=== PATIENT | male | born 1945 | race Caucasian/White ===

== ENCOUNTER → 2016-05-07 | Outpatient (CLI) | payer MEDICARE, BC | END | disposition home or self-care (01) | LOC: MW.CHNEURO 09:47 | PROVIDERS: ATTEND Psychiatry & Neurology Neuromuscular Medicine | DX: R27.0 Ataxia, unspecified (principal); M54.5 Low back pain; R29.898 Other symptoms and signs involving the musculoskeletal system | CPT/HCPCS: 36415; 82525; 82607; 95886; 95908; G0463 ==

== ENCOUNTER 2017-03-09 07:46 | Day surgery (SDC) | payer MEDICARE, BC ==
[~2017-03-09 07:46] MED LIST: Bupivacaine 25%/EPINEPHrine/PF 30 ML ONE; Glycopyrrolate 0.2 MG/ML SDV ONE; Lidocaine 2% 5 ML SDV ONE; Midazolam 1 MG/ML 2 ML SDV ONE; Neostigmine Methylsulfate 1 MG/ML 5 ML Syringe ONE; Ondansetron 4 MG/2 ML SDV ONE; Propofol 200 MG/20 ML SDV ONE; Rocuronium 10 MG/ML 10 ML Syringe ONE; fentaNYL 100 MCG/2 ML SDV ONE
--- NOTE | 2017-03-09 08:33 | PCM.PREANE ---
Preanesthetic Assessment - Anesthesia/Transfusion/Family Hx Anesthesia History: Prior Anesthesia Without Reaction Family History of Anesthesia Reaction: No Transfusion History: No Prior Transfusion(s) Intubation History: Unknown - Review of Systems General: No Symptoms Pulmonary: No Symptoms Cardiovascular: No Symptoms Gastrointestinal: No Symptoms Neurological: No Symptoms Other: Reports: None - Physical Assessment O2 Sat by Pulse Oximetry: 96 Respiratory Rate: 16 Vital Signs: Last Vital Signs Temp 36.8 C 03/09/17 08:10 Pulse Resp 16 03/09/17 08:10 BP 134/81 03/09/17 08:10 Pulse Ox 96 03/09/17 08:10 Height: 1.83 m Weight: 96.162 kg ASA Class: 2 Mental Status: Alert & Oriented x3 Airway Class: Mallampati = 2 Dentition: Reports: Normal Dentition Thyro-Mental Finger Breadths: 2 Mouth Opening Finger Breadths: 2 ROM/Head Extension: Limited/Partial Lungs: Clear to Auscultation, Normal Respiratory Effort Cardiovascular: Regular Rate, Regular Rhythm - Allergies Allergies/Adverse Reactions: Allergies Allergy/AdvReac Type Severity Reaction Status Date / Time No Known Allergies Allergy Verified 05/13/16 10:10 - Blood Blood Available: No - Anesthesia Plan Pre-Op Medication Ordered: None - Acknowledgements Anesthesia Type Planned: General Anesthesia Pt an Appropriate Candidate for the Planned Anesthesia: Yes Alternatives and Risks of Anesthesia Discussed w Pt/Guardian: Yes Pt/Guardian Understands and Agrees with Anesthesia Plan: Yes PreAnesthesia Questionnaire HEENT History: Reports: Other (See Below) Other HEENT History: wears glasses Cardiovascular History: Reports: High Cholesterol Gastrointestinal History: Reports: GERD, Other (See Below) Other Gastrointestinal History: h/o gastric ulcer Genitourinary History: Reports: BPH Musculoskeletal History: Reports: Arthritis, Back Pain, Chronic Neurological History: Reports: Other (See Below) Other Neuro History: 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 ?) Psychiatric History: Reports: Anxiety Oncologic (Cancer) History: Reports: Basal Cell Carcinoma Dermatologic History: Reports: Other (See Below) Other Dermatologic History: multiple areas of neurofibromatosis - Past Surgical History Head Surgeries/Procedures: Reports: None HEENT Surgical History: Reports: Tonsillectomy GI Surgical History: Reports: Appendectomy, Cholecystectomy, Hernia, Inguinal Male Surgical History: Reports: Vasectomy Musculoskeletal Surgical History: Reports: Other (See Below) Other Musculoskeletal Surgeries/Procedures:: R knee ligament reconstruction - SUBSTANCE USE Smoking Status *Q: Never Smoker Recreational Drug Use History: No - HOME MEDS Home Medications: Home Meds [place]-3S/DHA/Epa/Fish Oil [Fish Oil Dr 1,000 mg Softgel] 1 tab PO DAILY [History] Omeprazole 20 mg PO DAILY 03/07/17 [History] Simvastatin 40 mg PO DAILY 03/07/17 [History] Ubidecarenone [Co Q10] 1 tab PO DAILY 03/07/17 [History] Vitamin B Complex 1 tab PO DAILY 03/07/17 [History] Zolpidem Tartrate 10 mg PO BEDTIME PRN 03/07/17 [History] - CURRENT (IN HOUSE) MEDS Current Meds: Current Medications Bupivacaine HCl/Epinephrine Bitart (Marcaine 0.25%/Epinephrine 1:200,000) 30 ml INJECT ONETIME ONE Stop: 03/09/17 09:01 Cefazolin Sodium/Dextrose 2 gm (/ Premix) 50 mls @ 100 mls/hr IV ONETIME ONE Stop: 03/09/17 09:29 Lactated Ringer's (Ringers, Lactated) 1,000 mls @ 125 mls/hr IV ASDIRECTED LINA Last Admin: 03/09/17 08:12 Dose: 125 mls/hr Discontinued Medications Fentanyl (Sublimaze) Confirm Administered Dose 200 mcg .ROUTE .STK-MED ONE Stop: 03/09/17 07:08 Glycopyrrolate (Robinul) Confirm Administered Dose 0.4 mg .ROUTE .STK-MED ONE Stop: 03/09/17 07:08 Bupivacaine HCl/Epinephrine Bitart (Sensorc Mpf 0.25%-Epi 1:[id number]) Confirm Administered Dose 30 mls @ as directed .ROUTE .STK-MED ONE Stop: 03/09/17 07:21 Lidocaine (Xylocaine-Mpf 2%) Confirm Administered Dose 5 ml .ROUTE .STK-MED ONE Stop: 03/09/17 07:08 Midazolam HCl (Versed 1 Mg/Ml) Confirm Administered Dose 2 mg .ROUTE .STK-MED ONE Stop: 03/09/17 07:08 Neostigmine Methylsulfate (Neostigmine) Confirm Administered Dose 5 mg .ROUTE .STK-MED ONE Stop: 03/09/17 07:08 Ondansetron HCl (Zofran) Confirm Administered Dose 4 mg .ROUTE .STK-MED ONE Stop: 03/09/17 07:08 Propofol (Diprivan 20 Ml) Confirm Administered Dose 200 mg .ROUTE .STK-MED ONE Stop: 03/09/17 07:08 Rocuronium [place] (Zemuron) Confirm Administered Dose 100 mg .ROUTE .[facility]-MED ONE Stop: 03/09/17 07:08
[2017-03-09] MEDS ORDERED: Bupivacaine 0.25%/EPINEPHrine 1:200,000 10 ML SDV INJECT ONE (09:00)
[2017-03-09] MEDS ORDERED: ceFAZolin 2 GM in Premix Bag 1 BAG IV ONE (09:00)
[2017-03-09] MEDS ORDERED: Lactated Ringers 1,000 ML IV SCH (09:00)
[2017-03-09] MEDS ORDERED: ePHEDrine 50 MG/ML SDV ONE (09:49)
[2017-03-09] MEDS ORDERED: ceFAZolin 1 GM Vial ONE (09:50)
[2017-03-09] MEDS ORDERED: Sodium Chloride 0.9% 20 ML ONE (09:50)
[2017-03-09] MEDS ORDERED: Succinylcholine/Normal Saline 200 MG/10 ML Syringe ONE (09:53)
[2017-03-09] MEDS ORDERED: Phenylephrine/Normal Saline 100 MCG/ML 10 ML Syringe ONE (09:56)
[2017-03-09] MEDS ORDERED: Propofol 200 MG/20 ML SDV ONE (10:40)
[2017-03-09] MEDS ORDERED: fentaNYL 100 MCG/2 ML SDV IVPUSH PRN (10:41)
[2017-03-09] MEDS ORDERED: Acetaminophen/HYDROcodone 325-5 MG Tab PO PRN (12:56)
[2017-03-09 15:51] VITALS: BP 112/66
--- NOTE | 2017-03-11 14:22 | PCM.OPNOTE ---
- General Post-Op/Procedure Note Date of Surgery/Procedure: 03/09/17 Operative Procedure(s): excision of 11 painful neurofibromas - 3 face (1cm each ) , 2 posterior neck(1cm each), 2 abdomen(1cm and 2cm), 2 back(2cm each), 1 flank(2cm), 1 right ankle (1cm) Pre Op Diagnosis: nurofibromas - painful Post-Op Diagnosis: Same Anesthesia Technique: General ET Tube, Local Primary Surgeon: Mandi Ho Estate Attorney: Jennifer Gamboa Pathology: all individually sent Complications: None Condition: Good
--- NOTE | 2017-03-14 14:08 | OR ---
SURGEON: MARCELLUS DENNY MD DATE OF PROCEDURE: 03/09/2017 PREOPERATIVE DIAGNOSIS: Neurofibromas, painful. POSTOPERATIVE DIAGNOSIS: Neurofibromas, painful. PROCEDURE: Excision of 11 painful neurofibromas, three in the face about 1 cm each; two on the posterior neck, 1 cm each; two on the abdomen with 1 cm and 2 cm respectively; two on the back with 2 cm each; one on the flank at 2 cm; and one on the right ankle at 1 cm. All were closed in a simple fashion. DANCE DIRECTOR: MIRANDA Guerrier. ANESTHESIA: General, ET tube and local. PATHOLOGY: All individually sent. INDICATIONS: Mr. Lynn is a 71-year-old gentleman with several painful neurofibromas. 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 Unfortunately, there are several that are irritated. Risks and benefits of excision were discussed with him and he was in agreement to proceed. Risks were including, but not limited to, bleeding, infection, damage to underlying or overlying structures, possible need for future interventions, and possible scarring. PROCEDURE IN DETAIL: After informed consent was obtained and placed on the chart, the patient was brought to the operating theater and laid in the supine position. After adequate general anesthesia was obtained, the area was prepped and draped and a time-out was completed to confirm side and site. He was laid in the left lateral decubitus position and positioned appropriately and excision of the 2 posterior neck, 2 abdominal, 2 back, 1 flank, 1 right ankle neurofibromas were undertaken in an elliptical fashion. Measurements per above. Once adequately excised, there was meticulous hemostasis and closed using 3-0 Monocryl and 4-0 Prolene. Once adequately closed, each was dressed with Steri-Strips and a Tegaderm border. The patient was then laid somewhat more in the supine position. His 3 face lesions on his chin and lip were prepped and excised for a total of 1 cm each. Once adequately excised, the wounds again were closed with deep Monocryl stitches and a running 4-0 Prolene for the skin. Once adequately closed, they were dressed with bacitracin. The patient was transferred to the PACU in stable condition after extubated. FOLLOW UP INSTRUCTIONS: The patient will see us in clinic in approximately 2 weeks, sooner if any problems, questions, or concerns. [place] / SABINA /[id number] MTDYan
== END 2017-03-09 13:00 | disposition home or self-care (01) ==
LOC: MW.SDS 07:46
PROVIDERS: ATTEND Plastic Surgery
DX: D36.10 Benign neoplasm of peripheral nerves and autonomic nervous system, unspecified (principal); F41.9 Anxiety disorder, unspecified; N40.0 Benign prostatic hyperplasia without lower urinary tract symptoms; K21.9 Gastro-esophageal reflux disease without esophagitis; E78.00 Pure hypercholesterolemia, unspecified; Z79.899 Other long term (current) drug therapy
CPT/HCPCS: 64788; 88305; A9270; J0690; J2250; J2405; J3010; J7120; 00300; J2704

== ENCOUNTER 2024-02-17 11:59 | Observation (INO) | payer MEDICARE, BC ==
[2024-02-17] MEDS ORDERED: Sodium Chloride 0.9% 10 ML Syringe FLUSH PRN (12:07)
[2024-02-17] MEDS ORDERED: Sodium Chloride 0.9% 2.5 ML Syringe FLUSH PRN (12:07)
[2024-02-17 12:28] LABS: BASOPHILS ABSOLUTE AUTO 0.02 K/uL (0.00-0.20); BASOPHILS PERCENT AUTO 0.3 % (0.0-1.0); EOSINOPHILS ABSOLUTE AUTO 0.08 K/uL (0.00-0.45); EOSINOPHILS PERCENT AUTO 1.3 % (0.0-6.0); HEMATOCRIT 41.1 % (42.0-52.0); HEMOGLOBIN 13.8 g/dL (14.0-18.0); IMMATURE GRAN ABSOLUTE AUTO 0.05 K/uL (0.00-0.05); IMMATURE GRAN PERCENT AUTO 0.8 % (0.0-0.4); LYMPHOCYTES ABSOLUTE AUTO 0.89 K/uL (1.00-4.80); LYMPHOCYTES PERCENT AUTO 14.4 % (24.0-44.0); MEAN CORPUSCULAR HEMOGLOBIN 32.9 pg (28.0-32.0); MEAN CORPUSCULAR HGB CONC 33.6 g/dL (32.0-36.0); MEAN CORPUSCULAR VOLUME 97.9 fL (83.0-99.0); MEAN PLATELET VOLUME 8.9 fL (9.4-12.4); MONOCYTES ABSOLUTE AUTO 0.68 K/uL (0.00-0.80); NEUTROPHILS ABSOLUTE AUTO 4.46 K/uL (1.80-7.70); NEUTROPHILS PERCENT AUTO 72.2 % (41.0-71.0); PLATELET COUNT,PLT 177 K/uL (150-400); WHITE BLOOD CELL COUNT,WBC 6.18 K/uL (3.9-11.3)
[2024-02-17] MEDS: Iopamidol 755 Mg/ML 100 ML Bottle IVPUSH ONE (13:21)
[2024-02-17 13:39] LABS: APPEARANCE,URINE CLEAR; BILIRUBIN,URINE NEGATIVE (NEGATIVE); COLOR,URINE YELLOW; GLUCOSE,URINE NEGATIVE (NEGATIVE); KETONES,URINE NEGATIVE (NEGATIVE); LEUKOCYTE ESTERASE,URINE NEGATIVE (NEGATIVE); NITRITE,URINE NEGATIVE (NEGATIVE); OCCULT BLOOD,URINE NEGATIVE (NEGATIVE); PH,URINE 5.5 (5.0-8.0); PROTEIN,URINE NEGATIVE (NEGATIVE); UROBILINOGEN,URINE 0.2 EU/dL (<2.0)
[2024-02-17] MEDS: Sodium Chloride 0.9% 1,000 ML IV STA (13:49)
[2024-02-17 14:11] LABS: ALANINE AMINOTRANSFERASE,ALT 23 IU/L (14-63); ALBUMIN 3.3 g/dL (3.4-5.0); ALKALINE PHOSPHATASE 54 U/L (46-116); ASPARTATE AMNIOTRANSFERASE,AST 17 IU/L (15-37); BILIRUBIN TOTAL 0.4 mg/dL (0.2-1.0); BLOOD UREA NITROGEN,BUN 22 mg/dL (7.0-18.0); CALCIUM 8.9 mg/dL (8.5-10.1); CARBON DIOXIDE,CO2 27.5 mmol/L (21.0-32.0); CHLORIDE,CL 103 mmol/L (98-107); CREATININE 0.9 mg/dL (0.8-1.3); EST CRCL DRUG DOSING (CG) 73.21 mL/min; GLUCOSE RANDOM 105 mg/dL (74-106); MAGNESIUM 1.8 mg/dL (1.8-2.4); POTASSIUM,K 4.2 mmol/L (3.5-5.1); PROTEIN TOTAL,TP 6.6 g/dL (6.4-8.2); SODIUM,NA 137 mmol/L (136-148)
[2024-02-17 14:12] LABS: ESTIMATED GFR 88 mL/min (>60)
[2024-02-17] MEDS: Aspirin 81 MG Tab.Chew PO ONE (16:07)
[2024-02-17] MEDS ORDERED: Polyethylene Glycol 3350 Powder 17 GM Packet PO PRN (16:18)
[2024-02-17] MEDS ORDERED: Ondansetron 4 MG Tab.DIS PO PRN (16:18)
[2024-02-17] MEDS ORDERED: Acetaminophen 325 MG Tab PO PRN (16:18)
[2024-02-17 18:41] LABS: FOLIC ACID 28.1 ng/mL (8.60-58.90); TSH ULTRASENSITIVE 2.03 uIU/mL (0.36-3.74)
[2024-02-17] MEDS: Non-Formulary Medication 1 Each (Simvastatin 40 MG Tablet) PO SCH (18:43)
[2024-02-17] MEDS: atorvaSTATin 40 MG Tab PO SCH (20:35)
[2024-02-17] MEDS ORDERED: atorvaSTATin 20 MG Tab PO SCH (21:00)
[2024-02-17] MEDS: Zolpidem 5 MG Tab PO PRN (22:46)
[2024-02-17] MEDS: traZODone 50 MG Tab PO SCH (22:48)
[2024-02-18 06:21] LABS: BASOPHILS ABSOLUTE AUTO 0.02 K/uL (0.00-0.20); BASOPHILS PERCENT AUTO 0.3 % (0.0-1.0); EOSINOPHILS ABSOLUTE AUTO 0.08 K/uL (0.00-0.45); EOSINOPHILS PERCENT AUTO 1.3 % (0.0-6.0); HEMOGLOBIN 13.5 g/dL (14.0-18.0); IMMATURE GRAN ABSOLUTE AUTO 0.05 K/uL (0.00-0.05); IMMATURE GRAN PERCENT AUTO 0.8 % (0.0-0.4); LYMPHOCYTES ABSOLUTE AUTO 1.17 K/uL (1.00-4.80); LYMPHOCYTES PERCENT AUTO 18.7 % (24.0-44.0); MEAN CORPUSCULAR HEMOGLOBIN 32.1 pg (28.0-32.0); MEAN CORPUSCULAR HGB CONC 32.9 g/dL (32.0-36.0); MEAN CORPUSCULAR VOLUME 97.6 fL (83.0-99.0); MEAN PLATELET VOLUME 9.6 fL (9.4-12.4); MONOCYTES ABSOLUTE AUTO 0.62 K/uL (0.00-0.80); MONOCYTES PERCENT AUTO 9.9 % (0.0-8.0); NEUTROPHILS ABSOLUTE AUTO 4.33 K/uL (1.80-7.70); PLATELET COUNT,PLT 171 K/uL (150-400); WHITE BLOOD CELL COUNT,WBC 6.27 K/uL (3.9-11.3)
[2024-02-18 06:43] LABS: CALCIUM 9.2 mg/dL (8.5-10.1); CARBON DIOXIDE,CO2 29.1 mmol/L (21.0-32.0); CREATININE 0.8 mg/dL (0.8-1.3); EST CRCL DRUG DOSING (CG) 82.36 mL/min; POTASSIUM,K 4.7 mmol/L (3.5-5.1)
[2024-02-18] MEDS: Pantoprazole 40 MG Tab.CR PO SCH (08:28)
[2024-02-18] MEDS: Aspirin 81 MG Tab.Chew PO SCH (08:28)
[2024-02-18] MEDS: Meclizine 25 MG Tab PO ONE (11:08)
[2024-02-18] MEDS: Ondansetron 4 MG/2 ML SDV IVPUSH ONE (11:08)
[2024-02-18 16:47] VITALS: BP 173/81; PULSE 78
== END 2024-02-18 17:20 | disposition home or self-care (01) ==
LOC: MW.ED 11:59 → UNDOADMOB 16:04 → MW.MS 16:04
PROVIDERS: ADMIT Family Medicine; ATTEND Family Medicine
DX: R42 Dizziness and giddiness (principal); K21.9 Gastro-esophageal reflux disease without esophagitis; E78.00 Pure hypercholesterolemia, unspecified; F32.A Depression, unspecified; F41.9 Anxiety disorder, unspecified; Z79.899 Other long term (current) drug therapy
CPT/HCPCS: 36415; 70450; 70496; 70498; 73030; 80048; 80053; 80061; 81003; 82607; 82746; 83735; 84443; 84484; 85025; 93005; 97110; 97163; A9270; J2405; J7030; Q9967